=== PATIENT | female | born 2000 | race Native Hawaiian/Other Pacific Islander ===

== ENCOUNTER 2019-02-28 21:02 | Emergency (ER) | payer OTHER ==
[~2019-02-28] VITALS: Ht 157.5 cm; Wt 59.0 kg
[2019-02-28 22:11] LABS: PLATELET COUNT 354 K/uL (152-353)
[2019-02-28 22:19] LABS: POTASSIUM 3.7 mmol/L (3.6-5.2)
[2019-03-01 00:03] VITALS: BP 101/65; TEMP 97.5
== END 2019-03-01 00:35 | disposition home or self-care (01) ==
LOC: ED 21:02
PROVIDERS: Internal Medicine
DX: K52.9 Noninfective gastroenteritis and colitis, unspecified (principal); R10.9 Unspecified abdominal pain; R11.2 Nausea with vomiting, unspecified; R19.7 Diarrhea, unspecified; F15.90 Other stimulant use, unspecified, uncomplicated
CPT/HCPCS: 80048; 80307; 81000; 85027; 96360; 96365; 96374; 96375; 99284; J2405